=== PATIENT | female | born 1985 | race Caucasian/White ===

== ENCOUNTER 2021-07-03 07:29 | Outpatient (CLI) | payer OTHER, SELFPAY ==
--- NOTE | 2021-07-10 13:17 | WPDHOMESLEEP ---
Sleep Study - Home Unattended Date of Study: 07/03/21 <Gerda Valentino, DO - Last Filed: 07/10/21 13:39> Ordering Provider: UNKNOWN,DOCTOR <Gerda Valentino, DO - Last Filed: 07/10/21 13:39> Interpreting Provider: Gerda Valentino DO <Gerda Valentino, DO - Last Filed: 07/10/21 13:39> Home Sleep Study Type: Watch PAT <Gerda Valentino, DO - Last Filed: 07/10/21 13:39> Height: 1.75 m <Gerda Valentino DO - Last Filed: 07/10/21 13:39> Weight: 111.13 kg <Gerda Valentino DO - Last Filed: 07/10/21 13:39> Body Mass Index: 36.1 <Gerda Valentino DO - Last Filed: 07/10/21 13:39> Neck Circumference (inches): 15 <Gerda Valentino DO - Last Filed: 07/10/21 13:39> [place]: 12 <Gerda Valentino DO - Last Filed: 07/10/21 13:39> Reason for Sleep Study Witnessed apneas while sleeping <Gerda Valentino DO - Last Filed: 07/10/21 13:39> Sleep History The patient is a 36-year-old female with history of kidney stone that had a home sleep test ordered by her primary care due to witnessed apneas. The patient states that she has had sleeping problems since 3rd grade. She states that she has to take a 2 hour nap daily. The patient occasionally awakens from sleep short of breath. She rarely awakens at night with heartburn, belching or cough. She frequently snores loud enough that others complain. She frequently has trouble sleeping when she has a cold. She rarely wakes up gasping for air throughout the night. She occasionally has breathing problems at night observed by others. She occasionally sweats excessively at night. She occasionally has heart palpitations or irregular heartbeats during the night. She frequently falls asleep during the day and occasionally while driving. She rarely experiences loss of muscle tone when emotional. She constantly has trouble at work due to sleepiness. She frequently feels unable to move when waking up her falling asleep. She constantly has vivid dreamlike scenes upon awakening or falling asleep. She rarely feels afraid to go to sleep. She constantly has nightmares. She occasionally has thoughts racing through her mind. She rarely feels sad or depressed. She occasionally feels anxious. She frequently notices parts of her body jerk. She rarely kicks during the night. He rarely experiences crawling and aching feelings in her legs as well as leg pain during the night. She rarely groins her teeth during sleep but frequently awakens with a morning jaw pain. She is constantly bothered by pain during the day and occasionally awakened by pain during the night. She constantly wakes up feeling stiff in the morning with sore and achy muscles. She constantly wakes up with pain in the neck, spine and joints. The patient goes to bed between 10 and 11:00 p.m. on weekdays and between midnight and 1:00 a.m. on the weekends. It takes her between 1 in 2 hours to fall asleep. She wakes up 2-3 times per night. When she awakens, she will use the restroom, check the time and try to go back to sleep. She will end up being awake anywhere from 15 minutes to 60 minutes. She awakens at 6:10 a.m. on weekdays and between 830 and 10:30 a.m. on the weekends. She typically gets between 4 and 6 hours of sleep per night. She will stay in bed for 5 minutes on the weekdays and up to 2 hours on the weekend after awakening in the morning. She currently lives with her spouse and 15-year-old son. She denies consuming any caffeinated beverages within 2 hours of bedtime. She does not engage in physical exercise before bedtime. She does not read or watch television before falling asleep. She does take naps in the afternoon or the evening but they are not refreshing. She has 1 green tea per day. She denies tobacco, alcohol recreational drug use. <Gerda Valentino, DO - Last Filed: 07/10/21 13:39> Sleep Procedure The sleep study was com
[2021-07-10 13:20] VITALS: BMI 36.1
== END 2021-07-06 09:11 | disposition home or self-care (01) ==
LOC: ANHCSM 07:30
PROVIDERS: PCP Family Medicine
DX: G47.30 Sleep apnea, unspecified (principal)
CPT/HCPCS: 95800

== ENCOUNTER 2021-11-17 20:00 | Outpatient (CLI) | payer OTHER, SELFPAY ==
--- NOTE | 2021-11-28 16:15 | WPDSLEEPSTUD ---
Sleep Study Date of Study: 11/17/21 Ordering Provider: Erlinda Feldman, DEMARCO Interpreting Physician: Farzaneh Yañez MD Sleep Study Type: Polysomnogram Height: 1.75 m Weight: 108.862 kg Body Mass Index: 35.4 Neck Circumference (inches): 14 [place]: 6 Reason for Sleep Study * 07/03/2021 Home Sleep Apnea Test using WatchPat; AHI of 0.6 which is not consistent with sleep-disordered breathing and an RDI of 5.5 which is abnormal (>5). Due to the discrepancy between the AHI and the RDI, the patient presents for an in-lab study. Sleep History Adela Kumar is a 36-year-old female who had a home sleep test due to witnessed apneas. The patient states that she has had sleeping problems since 3rd grade. She states that she has to take a 2 hour nap daily. The patient occasionally awakens from sleep short of breath. She rarely awakens at night with heartburn, belching or cough. She frequently snores loud enough that others complain. She frequently has trouble sleeping when she has a cold. She rarely wakes up gasping for air throughout the night. She occasionally has breathing problems at night observed by others. She occasionally sweats excessively at night. She occasionally has heart palpitations or irregular heartbeats during the night. She frequently falls asleep during the day and occasionally while driving. She rarely experiences loss of muscle tone when emotional. She constantly has trouble at work due to sleepiness. She frequently feels unable to move when waking up her falling asleep. She constantly has vivid dreamlike scenes upon awakening or falling asleep. She rarely feels afraid to go to sleep. She constantly has nightmares. She occasionally has thoughts racing through her mind. She rarely feels sad or depressed. She occasionally feels anxious. She frequently notices parts of her body jerk. She rarely kicks during the night. He rarely experiences crawling and aching feelings in her legs as well as leg pain during the night. She rarely groins her teeth during sleep but frequently awakens with a morning jaw pain. She is constantly bothered by pain during the day and occasionally awakened by pain during the night. She constantly wakes up feeling stiff in the morning with sore and achy muscles. She constantly wakes up with pain in the neck, spine and joints. Normal bedtime is between 10 and 11:00 p.m. on weekdays and between midnight and 1:00 a.m. on the weekends. It takes her between 1 and 2 hours to fall asleep. She wakes up 2-3 times per night. When she awakens, she uses the bathroom, checks the time and tries to go back to sleep. She is able to return to sleep within 15 minutes to 60 minutes. She awakens at 6:10 a.m. on weekdays and between 8:30 a.m. and 10:30 a.m. on the weekends. She typically gets between 4 and 6 hours of sleep per night. She will stay in bed for 5 minutes on the weekdays and up to 2 hours on the weekend after awakening in the morning. She does take naps in the afternoon or the evening but they are not refreshing. Habits: No tobacco. Caffeine: 1 green tea per day. No alcohol or recreational drug use. [facility] Past Medical History Medical History (Updated 11/28/21 @ 16:40 by Farzaneh Yañez MD) Female hirsutism Impaired glucose tolerance Social History Social History (Updated 11/28/21 @ 16:41 by Farzaneh Yañez MD) Smoking status: Never smoker Alcohol intake: never Substance use: never Medications Home Medications Medication Instructions Recorded Confirmed Type norgestimate 0.25 mg-ethinyl 1 tablet PO DAILY #84 tablet 08/08/21 Rx estradiol 35 mcg tablet Sleep Procedure This test was performed using the [facility] multiple channel system including EOG, EEG, submental EMG, EKG, nasal and oral airflow using thermistors and nasal pressure sensors, chest and abdominal belts for body position data, and pulse oximetry. Video monitoring was also performed. The study was s
[2021-11-28 16:42] VITALS: BMI 35.4
== END 2021-11-18 07:00 | disposition home or self-care (01) ==
LOC: ANHCSM 11-20 11:00
PROVIDERS: PCP Physician Assistant; Visit Provider Physician Assistant
DX: G47.30 Sleep apnea, unspecified (principal); R06.83 Snoring
CPT/HCPCS: 95810

== ENCOUNTER 2024-03-27 17:16 | Emergency (ER) | payer OTHER, SELFPAY ==
[2024-03-27 17:40] VITALS: BP 131/78; PULSE 82; RESP 15; TEMP 36.6; O2SAT 98
--- NOTE | 2024-03-27 17:49 | ED.URI ---
HPI - URI/Sore Throat General Chief Complaint: Upper Respiratory Infection Stated Complaint: Flu Like symthoms / head ache Time Seen by Provider: 03/27/24 17:49 Source: patient Mode of arrival: ambulatory Limitations: no limitations History of Present Illness HPI Narrative: 38-year-old female presents with complaint of nasal congestion, postnasal drainage, sinus pressure for 9 days. Taking [id number] Tylenol cold and flu to treat symptoms. Has felt feverish but no fever. Denies cough. Complaint of fatigue. All systems reviewed and negative except as noted above. Related Data Home Medications Medication Instructions Recorded Confirmed phentermine 37.5 mg tablet 37.5 mg PO DAILY 03/27/24 03/27/24 trazodone 50 mg tablet 50 mg PO HS 03/27/24 03/27/24 Allergies Allergy/AdvReac Type Severity Reaction Status Date / Time No Known Allergies Allergy Verified 03/27/24 17:34 Review of Systems Review of Systems: CONSTITUTIONAL: Denies fever, chills, or sweats. reports fatigue. EYES: Denies visual changes, redness, or discharge. ENT: Reports rhinorrhea, congestion sinus pressure. Denies sore throat, or otalgia. CARDIOVASCULAR: Denies chest pain, palpitations, or edema. RESPIRATORY: Denies cough or dyspnea. GASTROINTESTINAL: Denies abdominal pain, nausea, vomiting, or diarrhea. GENITOURINARY: Denies dysuria or hematuria. SKIN: Denies rash or itching. MUSCULOSKELETAL: Denies back pain, joint pain, or myalgia. NEUROLOGIC: Denies headache, numbness, or weakness. PSYCHIATRIC: Denies anxiety or depression. All other systems reviewed are negative, except as documented in HPI. [facility] Past Medical History Medical History Acne Anxiety Depression Female hirsutism Impaired glucose tolerance Insomnia Kidney stones Migraines Obesity Family History Family History Mother Diabetes mellitus Cerebrovascular accident Hypertension Heart disease Cirrhosis of liver Grandparent Breast cancer maternal grandmother Other Carcinoma of colon Social History Social History (Updated 02/25/24 @ 15:38 by Lupe Garces CMA) Smoking status: Never smoker Alcohol intake: never Substance use: never Do You Feel Safe in your Home?: Yes Lack of Transportation: No Lack of Food: Never True Current Housing: I Have Housing Concerned About Future Housing: No Difficulty Paying Gas/Electric Bills: Decline to Answer Difficulty Paying for Meds: No Education: Associate Degree Difficulty w/ Childcare or Family Care: No Living arrangements: with family Occupation/Education: occupation Gender identity (if verbalized by the patient): Female Comments At time of signature, agree with nursing past medical, surgical, social and family history. There is no relevant family history pertinent to the presenting complaint. Exam Narrative: GENERAL: This is a well-nourished, well-developed patient, in no apparent distress. HEAD: normocephalic, atraumatic. EYES: PERRL. Sclera clear/white. Vision is grossly intact. EARS: External ears normal, auditory canals clear and without drainage, Fluid bilateral TMs without erythema or perforation. Hearing grossly intact. NOSE: External nose normal with Congested, purulent nasal drainage, erythema and swelling to bilateral nares. Frontal and maxillary sinus tenderness on palpation bilaterally. THROAT: Mucous membranes moist, Erythema postnasal drainage NECK: Neck supple, non-tender without lymphadenopathy, masses or thyromegaly. CARDIOVASCULAR: Regular rate and rhythm without murmurs, gallops, or rubs. RESPIRATORY: Clear to auscultation. Breath sounds equal bilaterally. No wheezes, rales, or rhonchi. SKIN: warm, Dry, intact with no suspicious lesions or rash, good texture and turgor. NEURO: awake, alert, and oriented to person, place and time. There we
== END 2024-03-27 18:06 | disposition home or self-care (01) ==
PROVIDERS: Emergency Provider Nurse Practitioner Family; PCP Physician Assistant
DX: J01.90 Acute sinusitis, unspecified (principal); F32.A Depression, unspecified; E66.9 Obesity, unspecified; Z68.34 Body mass index [BMI] 34.0-34.9, adult
CPT/HCPCS: 99213; G0463

== ENCOUNTER 2024-04-30 00:41 | Day surgery (SDC) | payer OTHER, SELFPAY ==
--- NOTE | 2024-04-21 17:06 | SUR.PREOP ---
Report to the Outpatient Waiting Room, entrance under the green pavilion located off [facility], at time _0600_ on date _04/30/2024_. Planned Procedure Time: _0730_.? Time changes happen often and if your time is changed the preop area will call you the afternoon before. - You and your visitor will be asked to self-screen and do not enter if you have any COVID symptoms. Please call surgeon if you need to reschedule. - A mask is optional within the hospital at this time. Patients may have clear liquids (water, carbonated beverages, clear teas, apple juice) until 3 hours prior to surgery with a maximum of 20 ounces. - No food from midnight until time of surgery and no smoking - Infants may have breast milk until 4 hours before surgery, formula 6 hours prior to surgery. - Children will be allowed to drink immediately following surgery.? If applicable, please bring a bottle or sippy cup to assist with drinking. Juice, water, soda, and popsicles are readily available.? For infants on formula, please bring formula the day of surgery.? Pacifiers are allowed. Take only the following medications with a SIP of water on the morning of surgery: __NA__ DO NOT STOP ANY OF YOUR OTHER PRESCRIPTION MEDICATIONS PRIOR TO SURGERY EXCEPT THE FOLLOWING Medications to discontinue per physician __NA___ Date to take last dose__NA__ Please no make-up, nail andorran, hairspray, perfume, deodorant, or body powder the day of surgery.? No jewelry (including any body piercings) or valuables the day of surgery, leave them at home.? Please take a shower or bath the night before, or the morning of, surgery with an antibacterial soap.? Wear comfortable, loose fitting clothing.? Children are encouraged to wear pajamas. - Jewelry must be removed prior to entering the operating room.? Rings and piercings that are not removed may be cut off. - The hospital will not accept responsibility for valuables.? - Please leave all valuables, including medications, at home the day of surgery. If you are going home after surgery, a licensed uke driver must drive you home.? - NO public transportation without another adult if you receive anesthesia. - We recommend that an adult stay with you for 24 hours following discharge. - We also recommend that you do not drive, make important decision, drink alcoholic beverages, or take any drugs that were not prescribed by your health care provider for at least 24 hours after your discharge time. For Pediatric surgeries, we recommend two adults accompany the child home. Follow any additional instructions given to you from your surgeon. Telephone instructions given to __Staci__and asked if any additional questions and then verbalized understanding. Patient advised to call surgeon office or pre surgery nurse liaison [phone] if any additional questions.
[2024-04-21 17:16] VITALS: BMI 33.8
--- NOTE | 2024-04-28 17:37 | PM.IMHP ---
H&P: HPI History of Present Illness Date/Time: 04/28/24 17:37 39-year-old 1 para 1001 female presents for evaluation and treatment of heavy irregular vaginal bleeding. States her cycles are now 5-7 days 3-4 days heavy with clotting and cramping, ultrasound shows enlarged uterus with multiple fibroids approximately 2-3 cm or smaller. Denies any significant symptoms or pain between her cycles but the cycles themselves are again very heavy with a lot of discomfort. Not currently using anything for contraception and does not desire any hormonal contraception. Also have discussed permanent contraception in the form of tubal removal which she strongly desires. We have discussed the permanence failure rate and increased of ectopic and regret and patient strongly desires. Chief Complaint: Menometrorrhagia Review of Systems Review of Systems: All systems reviewed & are unremarkable except as noted in HPI and below PMFSH Past Medical History Medical History Acne Anxiety Depression Female hirsutism Impaired glucose tolerance Insomnia Kidney stones Migraines Obesity Family History Family History Mother Diabetes mellitus Cerebrovascular accident Hypertension Heart disease Cirrhosis of liver Grandparent Breast cancer maternal grandmother Other Carcinoma of colon Social History Social History Smoking status: Never smoker Second hand tobacco smoke exposure: No Alcohol intake: never Substance use: never Substance use type: does not use Do You Feel Safe in your Home?: Yes Lack of Transportation: No Lack of Food: Never True Current Housing: I Have Housing Concerned About Future Housing: No Difficulty Paying Gas/Electric Bills: Decline to Answer Difficulty Paying for Meds: No Education: Associate Degree Difficulty w/ Childcare or Family Care: No Living arrangements: with family Additional living arrangements comments: with son and S/O Occupation/Education: occupation Gender identity (if verbalized by the patient): Female Spiritual care concerns: No Meds Home Medications and Allergies Home Medications Medication Instructions Recorded Confirmed Type phentermine 37.5 mg tablet 37.5 mg PO DAILY 04/21/24 04/21/24 History trazodone 50 mg tablet 50 mg PO DAILY 04/21/24 04/21/24 History Allergies Allergy/AdvReac Type Severity Reaction Status Date / Time No Known Allergies Allergy Verified 04/21/24 17:25 Exam Resp: Effort & Inspection: normal respiratory effort Auscultation: clear to auscultation bilaterally Cardio: Rate: regular rate Rhythm: regular rhythm GI: Inspection: normal to inspection Auscultation: normal bowel sounds : External Female Exam: normal external appearance Speculum Exam - Vagina: normal appearance of the vagina Speculum Exam - Cervix: normal appearance of the cervix Bimanual exam- vagina & uterus: enlarged ( 10-12 week size) Bimanual Exam- Adnexa, other: normal adnexae Assessment and Plan Assessment and plan (1) Menometrorrhagia: Code(s): N92.1 - Excessive and frequent menstruation with irregular cycle Status: Acute (2) Encounter for female sterilization procedure: Code(s): Z30.2 - Encounter for sterilization Status: Acute Plan 1. Hysteroscopy with uterine curettings 2. Endometrial ablation 3. Laparoscopic bilateral salpingectomy
[2024-04-30] VITALS (8 sets, daily range): BP systolic 106–126; BP diastolic 60–71; PULSE 75–85; RESP 16–25; TEMP 36.3–36.4; O2SAT 95–100; BMI 34.7
--- NOTE | 2024-04-30 06:42 | WPDANESEPPF ---
Anes - Initial Pre Proc Eval Procedure: Operation Date: 04/30/24 07:30 Proposed Procedures p Laparoscopic Bilateral Salpingectomy, Hysteroscopy Dilatation and Curettage, Melani Endometrial Ablation - Wally Downs MD Date/Time: 04/30/24 06:42 Surgeon: Wally Downs MD Pre Op Diagnosis: menometrorrhagia, desires sterilization Patient Data Age: 39 Gender: F Height: 1.75 m Weight: 104 kg Allergies Allergy/AdvReac Type Severity Reaction Status Date / Time No Known Allergies Allergy Verified 04/21/24 17:25 Home Medications Medication Instructions Recorded Confirmed Type phentermine 37.5 mg tablet 37.5 mg PO DAILY 04/21/24 04/21/24 History trazodone 50 mg tablet 50 mg PO DAILY 04/21/24 04/21/24 History Patient hx anesthesia problems: none Family hx anesthesia problems: none Results Review: All pre-operative results and documents have been reviewed as part of the pre-operative evaluation. [facility] Past Medical History Medical History Acne Anxiety Depression Female hirsutism Impaired glucose tolerance Insomnia Kidney stones Migraines Obesity Family History Family History Mother Diabetes mellitus Cerebrovascular accident Hypertension Heart disease Cirrhosis of liver Grandparent Breast cancer maternal grandmother Other Carcinoma of colon Social History Social History Smoking status: Never smoker Second hand tobacco smoke exposure: No Alcohol intake: never Substance use: never Substance use type: does not use Do You Feel Safe in your Home?: Yes Lack of Transportation: No Lack of Food: Never True Current Housing: I Have Housing Concerned About Future Housing: No Difficulty Paying Gas/Electric Bills: Decline to Answer Difficulty Paying for Meds: No Education: Associate Degree Difficulty w/ Childcare or Family Care: No Living arrangements: with family Additional living arrangements comments: with son and S/O Occupation/Education: occupation Gender identity (if verbalized by the patient): Female Spiritual care concerns: No Anes - Eval Final PreProcedure Day of Procedure 04/30/24 06:42 Patient weight: obese Heart: regular rate and rhythm Lungs: clear to auscultation Airway: Mallampati scale class II Neurological: alert and oriented Last oral intake: >/= 8 hours ASA classification: II Emergent: no Anesthetic plan: proceed Anesthesia type and monitoring: general ETT and standard monitoring Results Review: All pre-operative results and documents have been reviewed as part of the pre-operative evaluation. Informed Consent: The patient's anesthetic plan and its attendant risks and benefits were discussed with the patient/family/POA. Questions were solicited and answers provided to the satisfaction of the patient/family/POA.
[2024-04-30 06:50] LABS: BEDSIDEPREGUCG Negative (Negative)
[2024-04-30] MEDS: SCOPOLAMINE 1 MG PATCH 1 PATCH TRANSDERM (06:50)
[2024-04-30] MEDS: ACETAMINOPHEN 500 MG TABLET 1000 MG PO (06:50)
[2024-04-30] MEDS: KETOROLAC 15 MG/ML VIAL (*BKC) IV PUSH (06:50)
[2024-04-30] MEDS: LACTATED RINGERS 1,000 ML 30 ML IV CONT ×2 (06:50→09:38)
--- NOTE | 2024-04-30 07:06 | WPDHPUPDATE1 ---
History and Physical Update Update Date/Time: 04/30/24 07:06 History and Physical has been reviewed, including an updated exam of the patient. There are NO changes in the patient's condition. Risks, benefits, and alternatives have been discussed and questions answered. Patient agrees to proceed with procedure.
[2024-04-30] MEDS: ceFAZolin 2 GM/D5W 50 ML 2 GM/50 ML BAG IVPB (07:26)
[2024-04-30] MEDS: fentaNYL CITRATE INJ (*CRX) 100 MCG/2 ML VIAL 25 MCG IV PUSH ×5 (08:33→10:04)
--- NOTE | 2024-04-30 08:34 | P.OP_ITS ---
Procedure Note - Detailed Date of Procedure 04/30/24 Pre-op Diagnosis menometrorrhagia, desires sterilization Post-op Diagnosis Same Procedure Performed 1. Hysteroscopy with uterine curettings 2. Endometrial ablation 3. Bilateral salpingectomy laparoscopic Surgeon Wally Downs MD Anesthesia General Description of Procedure Patient prepped and draped in usual manner for this procedure. Cervical instruments were placed for uterine mobility throughout the case. Surgeon moved to the abdomen and abdominal trocar sites were marked and placed under direct visualization. Trendelenburg position was obtained and uterus in 2 zones without abnormality. Using the Harmonic scalpel the mesial salpinx cauterized and cut without difficulty and the tubes removed bilaterally. Gas was allowed to escape and incisions were approximated using 4-0 Monocryl after the trocars were removed. Cervix was dilated to allow the hysteroscope to be placed, once placed evaluation revealed no abnormalities. Curettings were obtained. Melani instrument was placed, cavity assessment was performed, instrument was activa [id number]. At the end of the cycle good destruction was noted throughout and the procedure was considered terminated. Patient was sent to recovery room in stable condition. Estimated Blood Loss 10 Drains No Packing No Pathology Yes Complications No immediate complications Condition Stable Disposition PACU [facility] Billing Surgery - Charge Forward: Surgery Billing
[2024-04-30] MEDS: oxyCODONE HCL (*CRX) 5 MG TAB IR PO (09:46)
== END 2024-04-30 10:37 | disposition home or self-care (01) ==
PROVIDERS: PCP Physician Assistant; Visit Provider Obstetrics & Gynecology
PROC: 0UDB8ZZ Extraction of Endometrium, Via Natural or Artificial Opening Endoscopic (ICD-10-PCS; CPT 58558; principal; 2024-04-30 07:30)
DX: Z30.2 Encounter for sterilization (principal); N85.8 Other specified noninflammatory disorders of uterus; G89.18 Other acute postprocedural pain; F41.9 Anxiety disorder, unspecified; F32.A Depression, unspecified; G47.00 Insomnia, unspecified; E66.9 Obesity, unspecified; Z68.34 Body mass index [BMI] 34.0-34.9, adult; Z87.442 Personal history of urinary calculi; Z80.0 Family history of malignant neoplasm of digestive organs; Z80.3 Family history of malignant neoplasm of breast; Z82.49 Family history of ischemic heart disease and other diseases of the circulatory system
CPT/HCPCS: 58563; 58661; 88302; 88305; A9270; J0690; J1100; J1885; J2250; J2405; J2704; J3010; J7030; J7120

== ENCOUNTER 2024-08-26 12:03 | Emergency (ER) | payer OTHER, SELFPAY ==
--- NOTE | 2024-08-26 12:10 | ED_ITS ---
HPI - URI/Sore Throat General Chief Complaint: Upper Respiratory Infection Stated Complaint: sore throat Time Seen by Provider: 08/26/24 12:13 History of Present Illness HPI Narrative: 39 Year old female presented for complaint of sore throat, fever, cough and malaise. Onset 4 days. Taking Mucinex and Tylenol Severe. Denies sob, wheezing, nausea, vomiting, diarrhea or lethargy. She works in Education. Related Data Home Medications ?Medication ?Instructions ?Recorded ?Confirmed ?Last Taken ?Type ergocalciferol (vitamin D2) 1,250 08/26/24 Unknown History mcg (50,000 unit) capsule Allergies Allergy/AdvReac Type Severity Reaction Status Date / Time No Known Allergies Allergy Verified 08/26/24 12:16 Review of Systems Review of Systems: CONSTITUTIONAL: Denies body aches, reports fever, chills, or sweats. EYES: Denies visual changes, redness, or discharge. ENT: Reports rhinorrhea, congestion, sore throat or otalgia. CARDIOVASCULAR: Denies chest pain, palpitations, or edema. RESPIRATORY: Denies dyspnea. GASTROINTESTINAL: Denies abdominal pain, nausea, vomiting, or diarrhea. SKIN: Denies rash MUSCULOSKELETAL: Denies back pain, joint pain NEUROLOGIC: Denies headache PMFSH Past Medical History Medical History Insomnia Acne Obesity Kidney stones Migraines Depression Anxiety Female hirsutism Impaired glucose tolerance Surgical History Surgical History H/O bilateral salpingectomy (04/30/24) pathology benign Family History Family History Mother Diabetes mellitus Cerebrovascular accident Hypertension Heart disease Cirrhosis of liver Grandparent Breast cancer maternal grandmother Other Carcinoma of colon Social History Social History Smoking status: Never smoker Second hand tobacco smoke exposure: No Alcohol intake: never Substance use: never Substance use type: does not use Do You Feel Safe in your Home?: Yes Lack of Transportation: No Lack of Food: Never True Current Housing: I Have Housing Concerned About Future Housing: No Difficulty Paying Gas/Electric Bills: Decline to Answer Difficulty Paying for Meds: No Education: Associate Degree Difficulty w/ Childcare or Family Care: No Living arrangements: with family Additional living arrangements comments: with son and S/O Occupation/Education: occupation Gender identity (if verbalized by the patient): Female Spiritual care concerns: No Exam Narrative: GENERAL: well-appearing EYES: conjunctivae clear ENT: Mucous membranes moist. TM pearly fink with normal light reflex bilaterally; no tragal tenderness. Oropharynx erythematous without lesions. Tons ils enlarged 1+ and without exudate. No drooling, no hoarseness, no trismus, uvula midline. No tripod positioning, hot potato voice, or soft palate swelling. NECK: Supple. No lymphadenopathy CHEST: Clear to auscultation, breath sounds equal. No respiratory distress, speaks in full sentences. HEART: Regular rate and rhythm. No murmur heard. SKIN: Warm, dry NEURO: Alert and oriented x3. Course Course Emergency Course: Patient is aware of diagnosis, understands and agrees to treatment plan. Anticipatory guidance given. Patient agrees to follow-up as directed and is aware of reasons to seek care at the emergency department. Portions of this record may have been created with voice recognition software Level of Care: Express Care Visit Vital Signs Vital signs: Vital Signs Temperature 98.5 F 08/26/24 12:16 Pulse Rate 96 08/26/24 12:16 Respiratory Rate 18 08/26/24 12:16 Blood Pressure 121/63 08/26/24 12:16 Pulse Oximetry 99 08/26/24 12:16 Oxygen Delivery Room Air 08/26/24 12:16 Temperature 98.5 F 08/26/24 12:16 Pulse Rate 96 08/26/24 12:16 Respiratory Rate 18 08/26/24 12:16 Blood Pressure 121/63 08/26/24 12:16 Pulse Oximetry 99 08/26/24 12:16 Oxygen Delivery Room Air 08/26/24 12:16 MDM - URI/Sore Throat MDM Narrative Medical decision making narrative: Flu, COVID, strep result reviewed with pt. Advise supportive treatments. Patient is appropriate for outpatient treatment and follow-up. Differential Diagnosis Differential diagnosis: Likely upper respiratory infection, viral infection and pharyngitis Lab Data Labs: Lab Results 08/26/24 08/26/24 Range/Units 12:36 12:37 POC Influenza A Ag Negative (Negative) POC Influenza B Ag Negative (Negative) POC SARS CoV-2 Ag Negative (Negative) POC Grp A Strep Screen Negative (Negative) Discharge Plan Discharge Clinical Impression: Upper respiratory infection Patient Disposition: Home, Self-Care Condition: Stable Instructions: Upper Respiratory Infection (ED) Additional Instructions: Flu and COVID negative. Rapid strep swab was negative today You will be notified in a few days if the culture comes back positive for strep, and appropriate antibiotics will be called in at that time. if symptoms are due to a viral illness, it is not treated with antibiotics. Viral symptoms can be present for up to 10-14 days. Recommendations Flonase spray and Zyrtec for sinus congestion Cough syrup may cause drowsiness; avoid driving or take it at night time. Tylenol every 8 hours as needed for pain/fever Soft foods, cool liquids, warm tea. Gargle with warm saltwater twice a day. Chloraseptic spray and throat lozenges. Rest and stay hydrated. --Follow up with your PCP --Go to the ER immediately if you cannot swallow your saliva, trouble breathing/wheezing, throat swelling, pain is persistent and severe Patient Language: [place] Prescriptions: No Action ergocalciferol (vitamin D2) 1,250 mcg (50,000 unit) capsule Follow-up/Referrals: Gaston,DEMARCO Coffey [Primary Care Provider] - Stand Alone Forms: Work/School Release IP
[2024-08-26 12:16] VITALS: BP 121/63; PULSE 96; RESP 18; TEMP 36.9; O2SAT 99
[2024-08-26 12:38] LABS: EDCOVIDSCREEN Negative (Negative); EDSTREPNEGPOS1 Negative (Negative)
[2024-08-26 12:39] LABS: EDINFLUASCREEN Negative (Negative); EDINFLUBSCREEN Negative (Negative)
--- OUTSIDE RECORDS SUMMARY | 2024-08-26 13:17 | XMS_ITS | Referral Summary ---
Author Organization [facility] Address [address] [place] [id number] Care Team Providers Care Entry Level Management Name Role Phone Vasquez Fedlmanmarvin RUDD Primary Care Pr ovider Eduardo Martin MD Unavailable [phone] Allergies No known active allergies Medications metFORMIN (FORTAMET) 500 mg 24 hr tablet take 1 Tablet by oral route every day with the evening meal 90 3 09/07/2014 Active albuterol HFA (PROVENTIL HFA,VENTOLIN HFA,PROAIR HFA) 90 mcg/actuation inhaler Inhale 2 puffs 08/14/2021 Active Sprintec, 28, 0.25-35 mg-mcg per tablet 09/06/2021 Active cyanocobalamin (Vitamin B-12) 1,000 mcg/mL injection Inject 1 mL under the skin every 30 (thirty) days Active Active Problems Problem Noted Date Diagnosed Date Facial rash 09/11/2021 Overview (09/22/2021): Labs (09/11/21): Cmp/cbc wnl, ESR 11, CRP 11.2, UA trace proteinuria, 3+ blood, neg chromatin AVISE (09/11/21): YAMILEX 1:320 homogenous, neg anti-histone and carP, elevated C3 Assessment & Plan (10/02/2021 1:21 PM CDT): Serologies reveal a +YAMILEX 1:320 homogenous pattern but is otherwise unremarkable for any other autoantibodies. Anti-histone and chromatin ab are negative as well. UA showed 3+ blood however due to menstruation at time of specimen collection per patient report. Continues to have facial rash exacerbated by alcohol intake, fatigue, flu-like feeling , and AM stiffness lasting 20 minutes. Was recently on steroids per pcp for chest wheezing without any improvement of her symptoms further suggesting it is not due to an inflammatory etiology. Overall, serologies are unremarkable and a +YAMILEX is non-specific for a connective tissue disease. Positive YAMILEX is a normal variant that can be seen in females of child-bearing age. There is no clinical or serological evidence at this time to suggest a rheumatological etiology. Would recommend further evaluation by dermatology. Follow up as needed. Seen with Dr. Martin. 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 No obvious synovitis or tenderness noted on peripheral exam today. Photos on patient's phone are suspicious for a malar rash however only lasts maximum 24 hours and her other symptoms are nonspecific for a CTD. Symptoms and exam are not overly suspicious for a rheumatological disease. Will order appropriate serologies to further evaluate. Should our work up be unremarkable for a CTD, could consider further evaluation by dermatology next. Follow up in 2 weeks. Sooner if needed. Seen with Dr. Martin. Adiposity 09/07/2014 Overview (10/25/2016): Obesity Social History Tobacco Use Types Packs/Day Years Used Date Smoking Tobacco: Never Alcohol Use Standard Drinks/Week Comments Yes 0 (1 standard drink = 0.6 oz pur e alcohol) Comments Unknown Sex and Gender Information Value Date Recorded Sex Assigned at Not on file Legal Sex Female 5:01 PM LETTUCE TRIMMER Gender Identity Not on file Sexual Orientation Not on file Last Filed Vital Signs Vital Sign Reading Time Taken Comments Blood Pressure 130/84 09/11/2021 2:15 PM LETTUCE TRIMMER Pulse 67 09/11/2021 2:15 PM LETTUCE TRIMMER Temperature 36.8 ??C (98.2 ??F) 10/02/2021 1:03 PM CD T Respiratory Rate - - Oxygen Saturation 98% 09/11/2021 2:15 PM LETTUCE TRIMMER Inhaled Oxygen Concentration - - Weight 112.1 kg (247 lb 3.2 oz) 10/02/2021 1:03 PM CDT Height 170.2 cm (5' 7 ) 10/23/2016 1:26 PM CDT Body Mass Index 38.72 10/23/2016 1:26 PM CDT Plan of Treatment Not on file Insurance [employer] Care Teams Entry Level Management Relationship Specialty Start Date End Date Erlinda Feldman PA PCP - General 10/19/16 Eduardo Martin MD [address] [place] [address] Consulting Physician Rheumatology 08/01/21
--- OUTSIDE RECORDS SUMMARY | 2024-08-26 13:17 | XMS_ITS | Data Portability ---
Author Organization [facility]ENTERMargoEglin Afb H Address [address] [place] [address] Care Team Providers Care Campaign Worker Name Role Phone ERLINDA VALENZUELA Primary Care Provider Unavailab le Assessment No assessment recorded. Plan of Treatment Reminders Order Date Submit Date Provider Last Modified By Organization Details Last Modified Time Details Appointments None recorded. Lab YAMILEX (antinucle ar antibodies ) screen, serum 2023 024 [email or web address] [facility], [address], [place], [address], 4 09:46:04 lipid panel, serum 2023 024 tcarterma [facility], [address], [place], [address], 4 10:43:33 vitamin B12 + folate, serum or blood 2023 024 tcarterma [facility], [address], [place], [address], 4 10:44:45 vitamin D, 25-hydroxy , total, serum 2023 024 tcarterma [facility], [address], [place], [address], 4 10:44:36 CMP, serum or plasma 2023 024 tcarterma [facility], [address], [place], [address], 4 10:44:27 CBC w/ auto diff [facility]23 [facility], [address], [place], [address], 4 10:44:11 iron + total iron-crys ng capacity (TIBC), serum [facility]23 [facility], [address], [place], [address], 4 10:43:59 ferritin, serum or plasma 2023 [facility], [address], [place], [address], 4 10:43:49 TSH + free T4, serum [facility]23 [facility], [address], [address], [place], [address], 4 10:43:41 rf (rheumatoi d factor) + anti-ccp abs, serum 2023 [facility], [address], [place], [address], 4 10:45:15 erythrocyt e sedimentat ion rate by westergren method [facility]23 [facility] [address], [address], [place], [address], 4 10:45:03 C reactive protein, QN, serum or plasma [facility]23 [facility], [address], [address], [place], [address], 4 10:44:54 HbA1c (hemoglobi n A1c), blood 2023 024 [facility], [address], [place], [address], 4 10:43:24 insulin, serum 2023 024 [facility], [address]22 [address], [address], [place], [address], 4 10:43:16 YAMILEX (antinucle ar antibodies ) screen, serum 2023 024 [facility], [address], [address], [place], [address], 5 09:08:47 lipid panel, serum 2023 024 [facility], 2022 [address], [address], [place], [address], 5 09:08:49 vitamin B12 + folate, serum or blood 2023 024 [facility], 2022 [address], [address], [place], [address], 5 09:08:53 vitamin D, 25-hydroxy , total, serum 2023 024 [facility], 2022 [address], [address], [place], [address], 5 09:09:03 CMP, serum or plasma 2023 024 [facility], 2022 [address], [address], [place], [address], 5 09:08:51 CBC w/ auto diff 2023 024 [facility], 2022 [address], [address], [place], [address], 5 09:08:59 iron + total iron-crys ng capacity (TIBC), serum 2023 [facility], [address], [address], [place], [address], 5 09:08:54 ferritin, serum or plasma 2023 [facility], [address], [address], [place], [address], 5 09:08:58 TSH + free T4, serum 2023 [facility], [address], [address], [place], [address], 5 09:08:50 rf (rheumatoi d factor) + anti-ccp abs, serum 2023 [facility], [address]22 [address], [address], [place], [address], 5 09:08:46 erythrocyt e sedimentat ion rate by westergren method 2023 [facility], [address]22 [address], [address], [place], [address], 5 09:09:00 C reactive protein, QN, serum or plasma 2023 [facility], [address]22 [address], [address], [place], [address], 5 09:09:02 HbA1c (hemoglobi n A1c), blood 2023 [facility], [address]22 [address], [address], [place], [address], 5 09:08:55 insulin, serum 2023 [facility], [address], [address], [place], [address], 5 09:08:57 Referral neurologis t referral 2023 [facility], [address], [place], [address], 13:42:37 Procedures None recorded. Surgeries None recorded. Imaging MRI, brain, w/wo contrast 2023 [facility], [address], [address], [place], [address], 13:42:17 Medication Orders trazodone 50 mg tablet 2023 [facility], [address], [address], 4 15:49:24 phentermin e 37.5 mg tablet 2023 tcarterma [facility], [address], [address], 4 09:20:42 trazodone 50 mg tablet 2023 [facility], [address], [address], 4 09:40:37 Medrol (Rikki) 4 mg tablets in a dose pack 2023 [facility], [address], [address], 4 09:40:38 Patient TargetsNo targets recorded. Patient Instructions Encounter Date Encounter Id Patient Instructions Last Modified By Organization Details Last Modified Time 06/17/2024 [id number] A healthy lifestyle: care instructions [email or web address] Not available 06/17/2024 09:40:32 Reason for Referral Neurologist Referral for Par esthesia Referring Physician: Erlinda Valenzuela, Internal Medicine, Encounter Date: 11/14/2023 Results Created Date Observation Date Name Description Value Unit Range Abnormal Flag Note LastModifiedBy Organization Detail LastModifiedTime 08/07/1908/08/2024 RHEUM ATOID ARTHR ITIS PROFI LE rheumatoid factor (rf) <10.0 IU/mL <14.0 Not Available [facility]) [address] [place], [address], 08/13/2024 09:08:46 08/07/1908/08/2024 RHEUM ATOID ARTHR ITIS PROFI LE anti-ccp Ab, IgG/IgA 3 units 0-19 Negat adalid <20 Weak posit adalid 20 - 39 Moder ate posit adalid 40 - 59 Stron g posit adalid >59 Not Available [facility] ([facility]) [address] [place], [address], 08/13/2024 09:08:46 08/07/19 25 08/10/2024 ANTIN UCLEA R AB MULTI PLEX RFX 9 YAMILEX direct NEGATI VE negati ve Not Available [facility] ([facility]) [address] [place], [address], 08/13/2024 09:08:47 08/07/19 25 08/09/2024 LIPID PANEL W/ CHOL/ HDL RATIO cholesterol, total 146 mg/dL 100-19 9 Not Available [facility] ([facility]) [address] [place], [address], 08/13/2024 09:08:48 08/07/19 25 08/09/2024 LIPID PANEL W/ CHOL/ HDL RATIO triglyceride s 62 mg/dL 0-149 Not Available [facility] ([facility]) [address] [place], [address], 08/13/2024 09:08:48 08/07/19 25 08/09/2024 LIPID PANEL W/ CHOL/ HDL RATIO HDL cholesterol 38 mg/dL >39 below low normal Not Available [facility] ([facility]) [address] [place], [address], 08/13/2024 09:08:48 08/07/19 25 08/09/2024 LIPID PANEL W/ CHOL/ HDL RATIO VLDL cholesterol demarcus 13 mg/dL 5-40 Not Available [facility] ([facility]) [address] [place], [address], 08/13/2024 09:08:48 08/07/19 25 08/09/2024 LIPID PANEL W/ CHOL/ HDL RATIO LDL chol calc ([facility]) 95 mg/dL 0-99 Not Available [facility] ([facility]) [address] [place], [address], 08/13/2024 09:08:48 08/07/1908/09/2024 LIPID PANEL W/ CHOL/ HDL RATIO T. chol/HDL ratio 3.8 ratio 0.0-4. 4 T. Chol/ HDL Ratio Men Women 1/2 Avg.R isk 3.4 3.3 Avg.R isk 5.0 4.4 2X Avg.R isk 9.6 7.1 3X Avg.R isk 23.4 11.0 Not Available [facility] ([facility]) [address] [place], [address], 08/13/2024 09:08:48 08/07/1908/08/2024 TSH+F REE T4 TSH 2.620 uIU/m L 0.450- 4.500 Not Available [facility] ([facility]) [address] [place], [address], 08/13/2024 09:08:50 08/07/19 25 08/08/2024 TSH+F REE T4 T4,free(dire ct) 0.90 NG/dL 0.82-1 .77 Not Available [facility] ([facility]) [address] [facility] [place], [address], 08/13/2024 09:08:50 08/07/19 25 08/09/2024 COMP. METAB OLIC PANEL (14) glucose 86 mg/dL 70-99 Not Available [facility] ([facility]) [address] [place], [address], 08/13/2024 09:08:51 08/07/19 25 08/09/2024 COMP. METAB OLIC PANEL (14) BUN 6 mg/dL 6-20 Not Available [facility] ([facility]) [address] [facility] [place], [address], 08/13/2024 09:08:51 08/07/19 25 08/09/2024 COMP. METAB OLIC PANEL (14) creatinine 0.63 mg/dL 0.57-1 .00 Not Available [facility] ([facility]) [address] [facility] [place], [address], 08/13/2024 09:08:51 08/07/19 25 08/09/2024 COMP. METAB OLIC PANEL (14) eGFR 116 mL/mi n/1.7 3 >59 Not Available [facility] ([facility]) [address] [facility] [place], [address], 08/13/2024 09:08:51 08/07/19 25 08/09/2024 COMP. METAB OLIC PANEL (14) BUN/creatini ne ratio 10 9-23 Not Available [facility] ([facility]) [address] [facility] [place], [address], 08/13/2024 09:08:51 08/07/19 25 08/09/2024 COMP. METAB OLIC PANEL (14) sodium 143 mmol/ L 134-14 4 Not Available [facility] ([facility]) [address] [facility] [place], [address], 08/13/2024 09:08:51 08/07/19 25 08/09/2024 COMP. METAB OLIC PANEL (14) potassium 4.2 mmol/ L 3.5-5. 2 Not Available [facility] ([facility]) [address] [facility] [place], [address], 08/13/2024 09:08:51 08/07/19 25 08/09/2024 COMP. METAB OLIC PANEL (14) chloride 106 mmol/ L 96-106 Not Available [facility] ([facility]) [address] [facility], [place], [address], 08/13/2024 09:08:51 08/07/19 25 08/09/2024 COMP. METAB OLIC PANEL (14) carbon dioxide, total 24 mmol/ L 20-29 Not Available [facility] ([facility]) [address] [facility], [place], [address], 08/13/2024 09:08:51 08/07/19 25 08/09/2024 COMP. METAB OLIC PANEL (14) calcium 9.0 mg/dL 8.7-10 .2 Not Available [facility] ([facility]) [address] [place], [address], 08/13/2024 09:08:51 08/07/19 25 08/09/2024 COMP. METAB OLIC PANEL (14) protein, total 6.7 g/dL 6.0-8. 5 Not Available [facility] ([facility]) [address] [place], [address], 08/13/2024 09:08:51 08/07/19 25 08/09/2024 COMP. METAB OLIC PANEL (14) albumin 3.9 g/dL 3.9-4. 9 Not Available [facility] ([facility]) [address] [place], [address], 08/13/2024 09:08:51 08/07/19 25 08/09/2024 COMP. METAB OLIC PANEL (14) globulin, total 2.8 g/dL 1.5-4. 5 Not Available [facility] ([facility]) [address] [facility] [place], [address], 08/13/2024 09:08:51 08/07/19 25 08/09/2024 COMP. METAB OLIC PANEL (14) bilirubin, total 0.5 mg/dL 0.0-1. 2 Not Available [facility] ([facility]) [address] [facility] [place], [address], 08/13/2024 09:08:51 08/07/19 25 08/09/2024 COMP. METAB OLIC PANEL (14) alkaline phosphatase 67 IU/L 44-121 Not Available [facility] ([facility]) [address] [facility] [place], [address], 08/13/2024 09:08:51 08/07/19 25 08/09/2024 COMP. METAB OLIC PANEL (14) AST (SGOT) 18 IU/L 0-40 Not Available [facility] ([facility]) [address] [facility] [place], [address], 08/13/2024 09:08:51 08/07/19 25 08/09/2024 COMP. METAB OLIC PANEL (14) ALT (SGPT) 25 IU/L 0-32 Not Available [facility] ([facility]) [address] [facility] [place], [address], 08/13/2024 09:08:51 08/07/19 25 08/09/2024 HOMOC Y+MET HYL homocyst(E)i ne 17.6 umol/ L 0.0-14 .5 above high normal Not Available [facility] ([facility]) [address] [facility] [place], [address], 08/13/2024 09:08:52 08/07/19 25 08/13/2024 HOMOC Y+MET HYL methylmaloni c acid, serum 254 nmol/ L 0-378 Not Available [facility] ([facility]) [address] [place], [address], 08/13/2024 09:08:52 08/07/19 25 08/08/2024 VITAM IN B12+F OLATE vitamin B12 275 pg/mL 232-12 45 Not Available [facility] ([facility]) [address] [place], [address], 08/13/2024 09:08:53 08/07/19 25 08/08/2024 VITAM IN B12+F OLATE folate (folic acid), serum 4.2 NG/mL >3.0 A serum folat e dorothy ntrat ion of less than 3.1 ng/mL is consi dered to repre sent clini demarcus defic iency . Not Available [facility] ([facility]) [address] [place], [address], 08/13/2024 09:08:53 08/07/19 25 08/08/2024 IRON AND TIBC iron bind.cap.(TI BC) 270 ug/dL 250-45 0 Not Available [facility] ([facility]) [address] [place], [address], 08/13/2024 09:08:54 08/07/19 25 08/08/2024 IRON AND TIBC UIBC 168 ug/dL 131-42 5 Not Available [facility] ([facility]) [address] [place], [address], 08/13/2024 09:08:54 08/07/19 25 08/08/2024 IRON AND TIBC iron 102 ug/dL 27-159 Not Available [facility] ([facility]) [address] [place], [address], 08/13/2024 09:08:54 08/07/19 25 08/08/2024 IRON AND TIBC iron saturation 38 % 15-55 Not Available [facility] ([facility]) [address] [facility], [place], [address], 08/13/2024 09:08:54 08/07/1908/08/2024 HEMOG LOBIN A1C hemoglobin A1C 5.7 % 4.8-5. 6 above high normal Predi abete s: 5.7 - 6.4 Diabe michael: >6.4 Glyce du contr ol for adult s with diabe michael: <7.0 Not Available [facility] ([facility]) [address] [place], [address], 08/13/2024 09:08:55 08/07/19 25 08/09/2024 INSUL IN insulin 23.0 uIU/m L 2.6-24 .9 Not Available [facility] ([facility]) [address] [facility], [place], [address], 08/13/2024 09:08:56 08/07/19 25 08/08/2024 JULI TIN ferritin 52 NG/mL 15-150 Not Available [facility] ([facility]) [address] [place], [address], 08/13/2024 09:08:58 08/07/19 25 08/08/2024 CBC WITH DIFFE RENTI AL/PL ATELE T WBC 9.5 x10e3 /uL 3.4-10 .8 Not Available [facility] ([facility]) [address] [facility], [place], [address], 08/13/2024 09:08:59 08/07/19 25 08/08/2024 CBC WITH DIFFE RENTI AL/PL ATELE T RBC 4.70 x10e6 /uL 3.77-5 .28 Not Available [facility] ([facility]) [address] [place], [address], 08/13/2024 09:08:59 08/07/19 25 08/08/2024 CBC WITH DIFFE RENTI AL/PL ATELE T hemoglobin 14.1 g/dL 11.1-1 5.9 Not Available [facility] ([facility]) [address] [facility], [place], [address], 08/13/2024 09:08:59 08/07/19 25 08/08/2024 CBC WITH DIFFE RENTI AL/PL ATELE T hematocrit 43.2 % 34.0-4 6.6 Not Available [facility] ([facility]) [address] [facility], [place], [address], 08/13/2024 09:08:59 08/07/19 25 08/08/2024 CBC WITH DIFFE RENTI AL/PL ATELE T MCV 92 fL 79-97 Not Available [facility] ([facility]) [address] [facility], [place], [address], 08/13/2024 09:08:59 08/07/1908/08/2024 CBC WITH DIFFE RENTI AL/PL ATELE T MCH 30.0 pg 26.6-3 3.0 Not Available [facility] ([facility]) [address] [facility], [place], [address], 08/13/2024 09:08:59 08/07/1908/08/2024 CBC WITH DIFFE RENTI AL/PL ATELE T MCHC 32.6 g/dL 31.5-3 5.7 Not Available [facility] ([facility]) [address] [facility], [place], [address], 08/13/2024 09:08:59 08/07/19 25 08/08/2024 CBC WITH DIFFE RENTI AL/PL ATELE T RDW 12.2 % 11.7-1 5.4 Not Available [facility] ([facility]) [address] [place], [address], 08/13/2024 09:08:59 08/07/19 25 08/08/2024 CBC WITH DIFFE RENTI AL/PL ATELE T platelets 223 x10e3 /uL 150-45 0 Not Available [facility] ([facility]) [address] [facility], [place], [address], 08/13/2024 09:08:59 08/07/19 25 08/08/2024 CBC WITH DIFFE RENTI AL/PL ATELE T neutrophils 69 % notest ab. Not Available [facility] ([facility]) [address] [facility], [place], [address], 08/13/2024 09:08:59 08/07/19 25 08/08/2024 CBC WITH DIFFE RENTI AL/PL ATELE T lymphs 22 % notest ab. Not Available [facility] ([facility]) [address] [facility], [place], [address], 08/13/2024 09:08:59 08/07/19 25 08/08/2024 CBC WITH DIFFE RENTI AL/PL ATELE T monocytes 6 % notest ab. Not Available [facility] ([facility]) [address] [facility], [place], [address], 08/13/2024 09:08:59 08/07/19 25 08/08/2024 CBC WITH DIFFE RENTI AL/PL ATELE T eos 2 % notest ab. Not Available [facility] ([facility]) [address] [facility], [place], [address], 08/13/2024 09:08:59 08/07/19 25 08/08/2024 CBC WITH DIFFE RENTI AL/PL ATELE T basos 1 % notest ab. Not Available [facility] ([facility]) [address] [facility], [place], [address], 08/13/2024 09:08:59 08/07/19 25 08/08/2024 CBC WITH DIFFE RENTI AL/PL ATELE T neutrophils (absolute) 6.7 x10e3 /uL 1.4-7. 0 Not Available [facility] ([facility]) [address] [facility], [place], [address], 08/13/2024 09:08:59 08/07/19 25 08/08/2024 CBC WITH DIFFE RENTI AL/PL ATELE T lymphs (absolute) 2.1 x10e3 /uL 0.7-3. 1 Not Available [facility] ([facility]) [address] [facility], [place], [address], 08/13/2024 09:08:59 08/07/19 25 08/08/2024 CBC WITH DIFFE RENTI AL/PL ATELE T monocytes(ab solute) 0.5 x10e3 /uL 0.1-0. 9 Not Available [facility] ([facility]) [address] [facility], [place], [address], 08/13/2024 09:08:59 08/07/19 25 08/08/2024 CBC WITH DIFFE RENTI AL/PL ATELE T eos (absolute) 0.2 x10e3 /uL 0.0-0. 4 Not Available [facility] ([facility]) [address] [facility], [place], [address], 08/13/2024 09:08:59 08/07/19 25 08/08/2024 CBC WITH DIFFE RENTI AL/PL ATELE T baso (absolute) 0.1 x10e3 /uL 0.0-0. 2 Not Available [facility] ([facility]) [address] [facility], [place], [address], 08/13/2024 09:08:59 08/07/19 25 08/08/2024 CBC WITH DIFFE RENTI AL/PL ATELE T immature granulocytes 0 % notest ab. Not Available [facility] ([facility]) [address] [facility], [place], [address], 08/13/2024 09:08:59 08/07/19 25 08/08/2024 CBC WITH DIFFE RENTI AL/PL ATELE T immature grans (abs) 0.0 x10e3 /uL 0.0-0. 1 Not Available [facility] ([facility]) [address] [facility], [place], [address], 08/13/2024 09:08:59 08/07/1908/08/2024 SEDIM ENTAT ION RATE- WESTE RGREN sedimentatio n rate-westerg antoinette 10 mm/HR 0-32 Not Available [facility] ([facility]) [address] [facility], [place], [address], 08/13/2024 09:09:00 08/07/1908/08/2024 C-JALEN CTIVE PROTE IN, QUANT C-reactive protein, quant 5 mg/L 0-10 Not Available [facility] ([facility]) [address] [facility], [place], [address], 08/13/2024 09:09:02 08/07/1908/08/2024 VITAM IN D, 25-HY DROXY vitamin D, 25-hydroxy 16.8 NG/mL 30.0-1 00.0 below low normal Vitam in D defic iency has been defin ed by the Insti tute of Medic ine and an Endoc rine Socie ty pract ice guide line as a level of serum 25-OH vitam in D less than 20 ng/mL (1,2) . The Endoc rine Socie ty went on to furth er defin e vitam in D insuf ficie ncy as a level betwe en 21 and 29 ng/mL (2). 1. IOM (Inst itute of Medic ine). 2010. Dieta ry refer ence intak es for calci um and D. Markel morales [place]: The Natio nal [facility] [facility] Press . 2. Isabella canseco MF, Daily [place], Ivania off-F errsinan i ARRIAZA, et al. Evalu ation , treat ment, and preve ntion of vitam in D defic iency : an Endoc rine Socie ty clini demarcus pract ice guide line. JCEM. 2010; 96(7) :1911 -30. Not Available [facility] ([facility]) [address], [place], [address], 08/13/2024 09:09:03 05/20/20 24 05/20/2024 MRI, brain , w/wo contr ast No observ ation record ed. [address], [place], [address], 05/20/2024 21:34:19 Result Notes None recorded. Problems Name Problem SNOMED Code Status Onset Date Resolution Date Notes Provider Name and Address Organization Details Recorded Time Body mass index 30+ - obesity 662012056 Active 024 Yudy Jaffe MA null, [place] - [facility] 4 09:25:13 Obesity 971901502 Active 024 TOBIN Martinez Attn: Accounting ,[address] [place], [address] , [facility] - [facility] 4 09:39:44 Sleep disorder 22442129 Active 024 TOBIN Martinez Attn: Accounting ,[address] [place], [address] , [facility] - [facility] 4 09:24:12 Multiple joint pain 43422191 Active 024 TOBIN Martinez Attn: Accounting ,[address] [place], [address] , [facility] - [facility] 4 09:24:14 Problem Notes None recorded. Procedures Surgical History Date Name Laterality Status Provider Name and Address Organization Details Recorded Time Tubal Ligation completed Yudy Jaffe [place] [facility] 06/17/2024 09:21:25 ovarian ablation completed Yudy Jaffe [place] [facility] 06/17/2024 09:21:18 Imaging Results Imaging Date Name Status LastModified by Organiz ation Details LastModified Time 05/20/2024 MRI, brain, w/wo contrast completed [address], [place], [address], 05/20/2024 21:34:19 Procedure Notes None recorded. Medical Equipment None Reported. Allergies No known drug allergies Medications Name Sig Start Date Stop Date Status Note LastModified by Organization Details LastModified Time trazodone 50 mg tablet take 1-2 tabs po qhs 2023 active Not Available Not Available Not Avai lable cetirizine 10 mg tablet TAKE 1 TABLET BY MOUTH ONCE DAILY FOR ALLERGY SYMPTOMS 06/17 completed Not Available Not Available Not Available hydrocodone 5 mg-acetamin ophen 325 mg tablet TAKE 1 TABLET BY MOUTH EVERY 8 HOURS NEEDED FOR PAIN 06/17 completed Not Available Not Available Not Available Medrol (Rikki) 4 mg tablets in a dose pack take as directed 2023 active Not Available Not Available Not Avai lable prednisone 20 mg tablet TAKE 2 TABLETS BY MOUTH ONCE DAILY FOR 5 DAYS 06/17 completed Not Available Not Available Not Available phentermine 37.5 mg tablet Take 1 tablet by mouth once daily active Not Available Not Available No t Available amoxicillin 875 mg tablet TAKE 1 TABLET BY MOUTH EVERY 12 HOURS FOR 7 DAYS 06/17 completed Not Available Not Available Not Available ergocalcife rol (vitamin D2) 1,250 mcg (50,000 unit) capsule Take 1 capsule every week by oral route. 2024 active Not Available Not Available Not Avai lable ibuprofen 600 mg tablet TAKE 1 TABLET BY MOUTH THREE TIMES DAILY 06/17 completed Not Available Not Available Not Available fluticasone propionate 50 mcg/actuati on nasal spray,suspe nsion USE 1 SPRAY(S) IN EACH NOSTRIL TWICE DAILY 06/17 completed Not Available Not Available Not Available Vitals Date Recorded Body weight Body mass index (BMI) Body height Respiratory rate Oxygen saturation Oxygen saturation in Arterial blood by Pulse oximetry Heart rate Systolic blood pressure Diastolic blood pressure Provider Name and Address Organization Details Last Updated DateTime 4 137298. 97 g 36 kg/m2 175.26 cm 20 /min 98 % 98 % 80 /min 130 mm[Hg] 78 mm[Hg] Yudy Jaffe [place] - [facility] 4 15:23:54 Date Recorded Body height Body mass index (BMI) Body weight Oxygen saturation Oxygen saturation in Arterial blood by Pulse oximetry Heart rate Systolic blood pressure Diastolic blood pressure Provider Name and Address Organization Details Last Updated DateTime 175.26 cm 34.9 kg/m2 868657. 8 g 98 % 98 % 70 /min 128 mm[Hg] 82 mm[Hg] Yudy Jaffe MA [facility] 09:23:43 Date Recorded Systolic blood pressure Diastolic blood pressure Provider Name and Address Organization Details Last Updated DateTime 06/17/2024 120 mm[Hg] 80 mm[Hg] TOBIN Martinez Attn: Accounting,[address] [facility], [place], [address], [facility] 06/17/2024 09:40:47 Social History Question Answer Notes LastModified by Organizat ion Details LastModified Time Tobacco Smoking Status Never Smoker Yudy Jaffe MA null, [facility] 11/14/2023 15:20:49 Do You Have An Advance Directive? No Information n ot available 06/17/2024 What Is Your Level Of Alcohol Consumption? None Information not available 11/14/2023 Are You Blind Or Do You Have Difficulty Seeing? No Information n ot available 11/14/2023 What Is Your Level Of Caffeine Consumption? Moderate Information not available 11/14/2023 In The 14 Days Before Symptom Onset, Have You Had Close Contact With A Laboratory-confirm ed COVID-19 While That Case Was Ill? No Information n ot available 11/14/2023 In The 14 Days Before Symptom Onset, Have You Had Close Contact With A Person Who Is Under Investigation For COVID-19 While That Person Was Ill? No Information not available 11/14/2023 Have You Been To An Area Known To Be High Risk For COVID-19? No Information not available 11/14/2023 Are You Currently Employed? Yes Information not available 11/14/2023 Are You Deaf Or Do You Have Serious Difficulty Hearing? No Information not available 11/14/2023 What Type Of Diet Are You Following? REGULAR Information n ot available 11/14/2023 Are There Any Guns Present In Your Home? No Information not available 11/14/2023 What Was The Date Of Your Most Recent Tobacco Screening? 06/17/2024 Information not available 06/17/2024 What Is Your Relationship Status? Domestic Partner Information not available 06/17/2024 Do You Use Your Seat Belt Or Car Seat Routinely? Yes Information not available 11/14/2023 Do You Have Smoke And Carbon Monoxide Detectors In Your Home? Yes Information not available 11/14/2023 Do You Feel Stressed (tense, Restless, Nervous, Or Anxious, Or Unable To Sleep At Night)? [id number] Information not available 11/14/2023 Do You Use Any Illicit Or Recreational Drugs? No Information not available 11/14/2023 Do You Use Sunscreen Routinely? Yes Information not available 11/14/2023 Has Tobacco Cessation Counseling Been Provided? Yes Information not available 11/14/2023 On What Date Was Tobacco Cessation Counseling Provided? 06/17/2024 Information not available 06/17/2024 Do You Or Have You Ever Used Any Other Forms Of Tobacco Or Nicotine? No Information not available 11/14/2023 Sex: Female Functional Status Question Answer Note LastModified by Organization D etails LastModified Time Are you able to care for yourself? Yes Information not available 11/14/2023 What is your exercise level? Moderate Information not available 11/14/2023 Mental Status None recorded. Family History Relationship Description Onset Age of this Age Resolved Age Notes LastModified by Organization Details LastModified Time Brother Asthma tcarterma Not available 06/17/2024 09:27:34 Brother Attention deficit hyperactivit y disorder tcarterma Not available 06/17 09:27:44 Sister Attention deficit hyperactivit y disorder tcarterma Not available 06/17 09:27:44 Medical History No medical history recorded. Gynecological History Statement/Question Response Flow Heavy Date of LMP 02/27/2024 Frequency of Cycle (Q days) 28 Menses Monthly Y Duration of Flow (days) 6 Current Control Method Tubal Ligat ion LMP Approximate Obstetrics History GPAL:G 1 P 1 0 0 1 Type Value Full Term 1 Induced 0 Spontaneous 0 Premature 0 Living 1 Total 1 Past Encounters Encounter ID Performer Location Encounter Start Date Encounter Closed Date Diagnosis/Indication Diagnosis SNOMED-CT Code Diagnosis ICD10 Code Diagnosis Note [id number] TOBIN Martinez [facility] [employer] [address] [place] [address] 11/14/2023 15:00:17 11/14/2023 15:51:34 Butterfly rash 96353117 R21 Check YAMILEX w/multiple x panel Menorrhagia 993007312 N9 2.0 Heavy menstrual cycles reported. check CBC and iron studies. Cholesterol screening 27 9915343 Z13.220 fasting lipids due Diabetes m ellitus screening 768956567 Z13.1 a1c screening due Body mass index 30+ - obesity 033235757 Z68.36 fasting insulin lab due. Fatigue 06086293 R53.83 sleep study a year or two ago did not show any apnea. Recheck B12, folate, vit D, cmp and start phentermin e trial to help with fatigue and weight. Multiple joint pain 3567 8005 M25.50 check full RA panel, ESR, CRP labs Paresthesia 68183991 R20 .2 refer for MRI brain w/wo contrast for persistent paresthesi as noted. Refer to Neurology as she has a myriad of neurologic symptoms that are frequent. Sleep disorder 09629941 G47.9 Start trazodone 50-100mg qhs [id number] TOBIN Martinez [facility] [employer] [address] [place] [address] 06/17/2024 09:16:40 06/17/2024 09:46:08 Body mass index 30+ - obesity 082914144 Z68.34 BMI is 34.9 Obesity 415035463 E66.9 discussed healthy diet, exercise, controllin g carbohydra michael and added sugars in the diet Butterfly rash 75776588 R21 Patient did not complete her labs that were ordered in the spring so we are reordering everything . Paresthesia 23824788 R20 .2 pt has persistent paresthesi as noted. saw neurology once and MRI brain from them was negative. she does need to f/u with them. she has had some numbness around mouth more recent episode that was new and lasted 30 min. Multiple joint pain 3567 8005 M25.50 Multiple joint pain continues to be a problem for the patient. She has seen Rheumatolo qiana in the past with no clear diagnoses. Repeat rheumatoid panel as well as sed rate and C-reactive protein Fatigue 54738935 R53.83 Patient did not complete the labs that were ordered in the spring so those are being reordered Sleep disorder 65011109 G47.9 trazodone 50-100mg qhs, dose refilled Pain of ri ght shoulder joint 7630956548 9146367 M25.511 1 month of symptoms now. no known injury. daily pain. ROM is limited. Start Medrol Dosepak Menorrhagia 347885917 N9 2.0 Patient had hysterosco py with ablation in April for menorrhagi a. We will also check repeat CBC and iron studies and thyroid Cholesterol screening 27 7725205 Z13.220 fasting lipids due Diabetes m ellitus screening 842686140 Z13.1 a1c screening due Health Concerns Section Related Observation LastModified by Organization Detai ls LastModified Time None Recorded Concern Status LastModified by Organization Details LastModified Time None Recorded Advance Directives Directive N: Payers Encounter Date Sequence Insurance Name Policy Number Policy Franco Covered Member ID Franco Member ID Guarantor Name 11/14/2023 1 [facility] [id number] Adela Kumar [id number] Adela Kumar 06/17/2024 1 [facility] [id number] Adela Kumar [id number] Adela Kumar Notes Date Note Type Note Provider Name and Address Organization Details Recorded Time 11/14/2023 text/html Generic HPI TemplateReported bypatient.Notes:butter fly rash at times; hands feet and legs with pins and needles often. electric shock feeling throughout body like a rubber band hitting her on her inside Had an episode of tripping on a crack in concrete and body went stiff .Dreaming is very vivid right now, and feeling exhausted in the morning like she's not rested.Hx of sleep study normal at last office.Fatigue is awful 24/7Eye twitching randomly now.Difficulty telling difference between hot and very hot temperature.Brain fog and forgetfulness.Heavy menstrual cycles.Cramps and muscle spasms in hands and feet.Pt's sister has MENARD, depression, anxiety, ptsd, MVP, fibromyalgia, endometriosis.Pt's mother has CVD, Raykenan MENARD , of stroke at 61. TOBIN Martinez Attn: Accounting,[address] [facility], [place], [address], [facility] 11/18/2023 09:07:22 06/17/2024 text/html Generic HPI TemplateReported bypatient.Notes:Past medical history remains the same with no changes.Butterfly rash at times; hands feet and legs with pins and needles often. electric shock feeling throughout body like a rubber band hitting her on her inside Had an episode of tripping on a crack in concrete and body went stiff .Dreaming is very vivid right now, and feeling exhausted in the morning like she's not rested.Hx of sleep study normalFatigue is awful 24/7Eye twitching randomly now.Difficulty telling difference between hot and very hot temperature.Brain fog and forgetfulness.Cramps and muscle spasms in hands and feet.Pt's sister has MENARD, depression, anxiety, ptsd, MVP, fibromyalgia, endometriosis.Pt's mother has CVD, Raykenan, MENARD , of stroke at 61. TOBIN Martinez Attn: Accounting,[address] [facility], [place], [address], [facility] 06/22/2024 09:28:20 OBGyn Episode No OBEpisode recorded.
--- OUTSIDE RECORDS SUMMARY | 2024-08-26 13:17 | XMS_ITS | Clinical Summary ---
Author Organization [facility] Address [facility] [place] [address] Care Team Providers Care Administrator Pesticide Name Role Phone Erlinda Feldman Primary Care Provider [phone] Allergies No known active allergies Medications No known medications Active Problems Problem Noted Date Diagnosed Date Frontal sinusitis 05/23/2023 Maxillary sinusitis 05/23/2023 Butterfly rash 05/23/2023 Cough 05/23/2023 Fatigue 05/23/2023 Hypomenorrhea 05/23/2023 Irregular periods 05/23/2023 Multiple joint pain 05/23/2023 Nasal congestion 05/23/2023 Neck swelling 05/23/2023 Night sweats 05/23/2023 Impaired glucose tolerance 03/18/2023 Insulin resistance 03/18/2023 Vitamin D deficiency 03/18/2023 Weight gain 03/18/2023 Acute sinusitis 09/30/2021 History of severe acute resp iratory syndrome coronavirus 2 (SARS-CoV-2) disease 09/25/2021 Facial rash 09/11/2021 Overview (05/23/2023): Labs (09/11/21): Cmp/cbc wnl, ESR 11, CRP 11.2, UA trace proteinuria, 3+ blood, neg chromatin AVISE (09/11/21): YAMILEX 1:320 homogenous, neg anti-histone and carP, elevated C3 Last Assessment & Plan: Serologies reveal a +YAMILEX 1:320 homogenous pattern [...] up as needed. Seen with Dr. Martin. Vitamin B12 deficiency (non anemic) 09/01/2021 Adiposity 09/07/2014 Overview (05/23/2023): Obesity Immunizations Name Administration Dates Next Due MODERNA COVID-19 (12+) MRNA, LNP-S, PF, 100 MCG/ 0.5 ML DOSE 10/08/2020,09/10/2020 Social History Tobacco Use Types Packs/Day Years Used Date Smoking Tobacco: Never Smokeless Tobacco: Never Tobacco Cessation:Counseling Given: No Alcohol Use Standard Drinks/Week Comments Not Currently 0 (1 standard drink = 0.6 oz pur e alcohol) PHQ-2 Answer Date Recorded Patient Health Questionnaire-2 Score 0 04/20/2024 Comments No Sex and Gender Information Value Date Recorded Sex Assigned at Not on file Legal Sex Female 9:27 AM CDT Gender Identity Not on file Sexual Orientation Not on file Last Filed Vital Signs Vital Sign Reading Time Taken Comments Blood Pressure 103/69 04/20/2024 7:40 AM CDT Pulse 66 04/20/2024 7:40 AM CDT Temperature 36.9 ??C (98.5 ??F) 08/16/2023 2:09 PM CS T Respiratory Rate 18 08/16/2023 2:09 PM FRONT OFFICE CLERK Oxygen Saturation 99% 04/20/2024 7:40 AM CDT Inhaled Oxygen Concentration - - Weight 106.6 kg (235 lb) 04/20/2024 7:40 AM CDT Height 175.3 cm (5' 9 ) 04/20/2024 7:40 AM CDT Body Mass Index 34.7 04/20/2024 7:40 AM CDT Plan of Treatment Health Maintenance Due Date Last Done Comments Cervical Cancer Screening Pa p Smear (Age 30 to 64) Every 3 Years 1985 Annual Physical 1988 Hepatitis C 2003 DTaP, Tdap and Td Vaccines ( 1 - Tdap) 2004 Hepatitis B Vaccines (1 of 3 - 19+ 3-dose series) 2004 Cervical Cancer Screening Pa p with HPV Testing (Age 30 to 64) Every 5 Years 2015 Cervical Cancer Screening wi th HPV 2015 COVID-19 Vaccine (3 - 2023-2 5 season) 2024 10/08/2020, 09/10/2020 Influenza Adult (#1) 2024 PHQ-2 (Physician [place]) 07/22/2024 04/20/2024 PHQ-2 (Physician [place]) 04/20/2025 04/20/2024 HPV Vaccines Aged Out No longer eligi ble based on patient's age to complete this topic Meningococcal B Vaccine Aged Out No l onger eligible based on patient's age to complete this topic Meningococcal Vaccine Aged Out No robert bernarda eligible based on patient's age to complete this topic Pneumococcal Vaccine: Pediatrics (0 to 5 Years) and At-Risk Patients (6 to 64 Years) Aged Out No longer eligible b ased on patient's age to complete this topic RSV Immunizations Under 20 Months Aged Out No longer eligible b ased on patient's age to complete this topic Insurance [facility] Care Teams Administrator Pesticide Relationship Specialty Start Date End Date Erlinda Feldman PA [address] [place] [address] PCP - General PHYSICIAN H[employer] PRESS OPERATOR 03/12/21
--- OUTSIDE RECORDS SUMMARY | 2024-08-26 13:17 | XMS_ITS | Clinical Summary ---
Author Organization [facility] Address [address] [place] [address] Care Team Providers Care Slackman Name Role Phone Vasquez Feldmanmarvin RUDD Primary Care Pr ovider Eduardo Martin MD Unavailable [phone] Allergies No known active allergies Medications metFORMIN [...] Martin. Assessment & Plan (09/11/2021 5:10 PM INSTRUCTOR WEAVING): 36-year-old female presenting with PMHx migraines and [...] Dr. Martin. Adiposity 09/07/2014 Overview (10/25/2016): Obesity Family History Medical History Relation Name Comments Diabetes type II Other Family hist ory of Diabetes mellitus type 2; Relation Name Status Comments Other Social History Tobacco Use Types Packs/Day Years Used Date Smoking Tobacco: Never Alcohol Use Standard Drinks/Week Comments Yes 0 (1 standard drink = 0.6 oz pur e alcohol) Comments Unknown Sex and Gender Information Value Date Recorded Sex Assigned at Not on file Legal Sex Female 5:01 PM INSTRUCTOR WEAVING Gender Identity Not on file Sexual Orientation Not on file Obstetrics History Last Filed Vital Signs Vital Sign Reading Time Taken Comments Blood Pressure 130/84 09/11/2021 2:15 PM INSTRUCTOR WEAVING Pulse 67 09/11/2021 2:15 PM INSTRUCTOR WEAVING Temperature 36.8 ??C (98.2 ??F) 10/02/2021 1:03 PM CD T Respiratory Rate - - Oxygen Saturation 98% 09/11/2021 2:15 PM INSTRUCTOR WEAVING Inhaled Oxygen Concentration - - Weight 112.1 kg (247 lb 3.2 oz) 10/02/2021 1:03 PM CDT Height 170.2 cm (5' 7 ) 10/23/2016 1:26 PM CDT Body Mass Index 38.72 10/23/2016 1:26 PM CDT Plan of Treatment Health Maintenance Due Date Last Done Comments Cervical Cancer Screening 1985 Depression Screening 1985 Hepatitis C Screening 1985 DTaP/Tdap/Td Vaccine (1 - Tdap) 1996 Varicella Vaccines (1 of 2 - 13+ 2-dose series) 1998 Hepatitis B Screening 2003 Regular Well Visit/Exam 18-64 2003 Covid-19 Vaccine (4 - 2023-2 5 season) 2024 10/08/2020, 09/19/2020, 09/04/2020 Influenza Vaccine (#1) 2024 HPV Vaccines Aged Out No longer eligi ble based on patient's age to complete this topic Pneumococcal vaccine <65 Aged Out No longer eligible based on patient's age to complete this topic Insurance [employer] [facility] CHOICE PLUS [facility] H[facility]/PPO Address: [facility] [address] [place] [address] Care Teams Slackman Relationship Specialty Start Date End Date Erlinda Feldman PA PCP - General 10/19/16 Eduardo Martin MD [address] [place] [address] Consulting Physician Rheumatology 08/01/21
--- OUTSIDE RECORDS SUMMARY | 2024-08-26 13:17 | XMS_ITS | Data Portability ---
Author Organization [facility] Reasult, Main Office Address [address] [place] [address] Assessment No assessment recorded. Plan of Treatment Reminders Order Date Submit Date Provider Last Modified By Organization Details Last Modified Time Details Appointments None recorded. Lab TSH + free T4, serum 2022 023 [email or web address] [facility], [address] [address], [place], [address], 4 16:33:24 T3, free, serum or plasma 2022 023 [email or web address] [facility], [address] [place] [address], [place], [address], 4 16:33:24 YAMILEX (antinuclea r antibodies) screen, serum 2022 023 [email or web address] [facility], [address] [place] [address], [place], [address], 4 16:33:23 HbA1c (hemoglobin A1c), blood 2022 023 [email or web address] [facility], [address] [place] [address] 2, [place], [address], 4 16:33:23 insulin, serum 2022 023 [email or web address] [facility], [address] [address], [place], [address], 4 16:33:22 lipid panel, serum 08/28/ 2023 08/28/2 023 [email or web address] [facility], [address] [address], [place], [address], 4 16:33:23 CMP, serum or plasma 2022 023 [email or web address] [facility], [address] [address], [place], [address], 4 16:33:23 CBC w/ auto diff 2022 023 [email or web address] [facility], [address] [place] [address], [place], [address], 4 16:33:23 iron + TIBC + ferritin, serum 2022 023 [email or web address] [facility], [address] [place] [address], [place], [address], 4 16:33:24 vitamin B12 + folate, serum or blood 2022 023 [email or web address] [facility], [address] [place] [address], [place], [address], 4 16:33:25 vitamin D, 25-hydroxy, total, serum 2022 023 [email or web address] [facility], [address] [place] [address], [place], [address], 4 16:33:25 rf (rheumatoid factor), serum 2022 023 [email or web address] [facility], [address] [place] [address] 2, [place], [address], 4 16:33:23 C reactive protein, QN, serum or plasma 2022 023 [email or web address] [facility], [address] [place] [address] 2, [place], [address], 4 16:33:24 ESR (erythrocyt e sedimentati on rate), blood 2022 023 [email or web address] [facility], [address], [address], [place], [address], 4 16:33:24 Referral None recorded. Procedures None recorded. Surgeries None recorded. Imaging None recorded. Medication Orders phentermine 37.5 mg tablet 2022 023 [email or web address] [facility] [address], [place], [address], 3 14:15:19 Patient TargetsNo targets recorded. Patient InstructionsNo instructions recorded. Reason for Referral None Reported. Results Created Date Observation Date Name Description Value Unit Range Abnormal Flag Note LastModifiedBy Organization Detail LastModifiedTime 06/26/20 21 06/26/2021 pregn ricarda test, urine HCG negati ve Not Available [facility] [address], [address], [place], [address], 06/26/2021 16:39:59 08/09/19 22 08/09/2021 XR, chest , 2 view No observ ation record ed. [id number], [place], [address], 09/19/2022 07:36:21 11/30/19 22 11/17/2021 polys omnog annette, split night No observ ation record ed. [id number] [facility] ([facility]) [address] [place], [address], 09/19/2022 07:36:21 Result Notes None recorded. Problems Name Problem SNOMED Code Status Onset Date Resolution Date Notes Provider Name and Address Organization Details Recorded Time Acute sinusitis 45264273 Active 2021 Not Available [facility] 3 07:31:35 History of SARS-CoV- 2 49434966872 4591902 Active 2021 Not Available [facility] 3 07:31:35 Neck swelling 506192714 Active Not Available [facility] 3 07:31:35 Butterfly rash 57790127 Active Not Available [facility] 3 07:31:35 Multiple joint pain 54365584 Active Not Available [facility] 3 07:31:35 Night sweats 66746167 Active Not Available [facility] 3 07:31:35 Acute urinary tract infection 677075659 Active 2022 Not Available [facility] 3 07:31:36 Cough 75910601 Active Not Available [facility] 3 07:31:36 Vitamin B12 deficienc y (non anemic) 63145316 Active 2021 Not Available [facility] 3 07:31:36 Hypomenor melida 88258515 Completed Not Available [facility] 3 07:31:36 Nasal congestio n 41749047 Active Not Available [facility] 3 07:31:36 Frontal sinusitis 47151087 Active Not Available [facility] 3 07:31:36 Irregular periods 13995441 Completed Not Available [facility] 3 07:31:36 Fatigue 61099256 Active Not Available [facility] 3 07:31:36 Maxillary sinusitis 02690395 Active Not Available [facility] 3 07:31:36 Insulin resistanc e 527128406 Active 2022 TOBIN Martinez [address], [address], [address] , [employer] 3 16:13:49 Impaired glucose tolerance 7766649 Active 2022 TOBIN Martinez [address], [address], [place], [address] , [employer] 3 16:14:30 Weight gain 3494361 Active 2022 TOBIN Martinez [address], [address], [place], [address] , [employer] 3 16:15:10 Vitamin D deficienc y 76174796 Active 2022 TOBIN Martinez [address], [address], [place], [address] , [facility] [employer] 3 16:16:40 Stomach cramps 87941113 Active 2022 TOBIN Martinez [address], [address], [place], [address] , [employer] 3 17:28:54 Notes:COVID-19 pos 07/15/21 Problem Notes None recorded. Procedures Surgical History Date Name Laterality Status Provider Name and Address Organization Details Recorded Time 05/08/2018 Date of Last Pap Smear completed Not Available [facility] 09/19/2022 07:26:54 Imaging Results Imaging Date Name Status LastModified by [facility] Details LastModified Time 11/17/2021 polysomnogr am, split night completed [id number] [facility] ([facility]) [address] [place], [address], 09/19/2022 07:36:21 08/09/2021 XR, chest, 2 view completed [id number], [place], [address], 09/19/2022 07:36:21 Procedure Notes None recorded. Medical Equipment None Reported. Allergies No known drug allergies Medications Name Sig Start Date Stop Date Status Note LastModified by Organization Details LastModified Time Aviane 0.1 mg-20 mcg tablet Take 1 tablet every day by oral route. 06/05 completed Not Available Not Available Not Available azithromyci n 250 mg tablet TAKE 2 TABLETS BY MOUTH ON DAY 1, AND THEN TAKE 1 TABLET BY MOUTH ONCE A DAY ON DAY 2 THROUGH DAY 5 11/17 completed Not Available Not Available Not Available benzonatate 200 mg capsule Take 1 capsule 3 times a day by oral route as needed. 08/05 completed Not Available Not Available Not Available hydrocodone 5 mg-acetamin ophen 325 mg tablet TK 1 T PO Q 6 H PRN P 06/05 completed Not Available Not Available Not Available Medrol (Rikki) 4 mg tablets in a dose pack use as directed 08/23 completed Not Available Not Available Not Available prednisone 20 mg tablet TAKE 2 TABLETS BY MOUTH ONCE DAILY FOR 5 DAYS active Not Available Not Available No t Available [employer] USE DIRECTED 03/18 completed Not Available Not Available Not Available phentermine 37.5 mg tablet TAKE 1 TABLET BY MOUTH ONCE DAILY IN THE MORNING active Not Available Not Available No t Available sulfamethox azole 800 mg-trimetho prim 160 mg tablet TAKE 1 TABLET BY MOUTH TWICE DAILY FOR 7 DAYS 08/14 completed Not Available Not Available Not Available famotidine 20 mg tablet 02/20 completed Not Available Not Available Not Available tamsulosin 0.4 mg capsule 06/05 completed Not Available Not Available Not Available benzonatate 100 mg capsule TAKE 1 CAPSULE BY MOUTH EVERY 8 HOURS NEEDED active Not Available Not Available No t Available cyanocobala min (vit B-12) 1,000 mcg/mL injection solution Inject 2 mL every month by subcutane ous route. 03/18 completed [facility] # [phone] Not Available Not Available Not Available Cipro 500 mg tablet Take 1 tablet every 12 hours by oral route. 06/05 completed Not Available Not Available Not Available codeine 10 mg-guaifene sin 100 mg/5 mL oral liquid Take 10 mL every 4-6 hours by oral route as needed. 09/25 completed Not Available Not Available Not Available zolpidem 5 mg tablet 03/18 completed Not Available Not Available Not Available ibuprofen 600 mg tablet Take by oral route as needed for 5 days. 06/05 completed Not Available Not Available Not Available hydrocodone 10 mg-chlorphe niramine 8 mg/5 mL oral susp extend.rel 12hr TAKE 5ML PO Q 12 H 02/20 completed Not Available Not Available Not Available albuterol sulfate HFA 90 mcg/actuati on aerosol inhaler Inhale 2 puffs every 4-6 hours by inhalatio n route as needed. 03/18 completed Not Available Not Available Not Available Vitamin D2 1,250 mcg (50,000 unit) capsule Take 1 capsule every week by oral route. 06/05 completed Not Available Not Available Not Available ondansetron 4 mg disintegrat ing tablet 06/05 completed Not Available Not Available Not Available metformin ER 500 mg tablet,exte nded release 24 hr TAKE 1 TABLET BY MOUTH ONCE DAILY WITH DINNER 03/18 completed Not Available Not Available Not Available dicyclomine 10 mg capsule TAKE 1 CAPSULE BY MOUTH THREE TIMES DAILY NEEDED active Not Available Not Available No t Available spironolact one 50 mg tablet TAKE 1 TABLET BY MOUTH ONCE DAILY IN THE MORNING 03/18 completed Not Available Not Available Not Available amoxicillin 875 mg-potassiu m clavulanate 125 mg tablet TAKE 1 TABLET BY MOUTH EVERY 12 HOURS active Not Available Not Available No t Available Sprintec (28) 0.25 mg-35 mcg tablet TAKE 1 TABLET BY MOUTH ONCE DAILY 03/18 completed Not Available Not Available Not Available nitrofurant oin monohydrate /macrocryst als 100 mg capsule TAKE 1 CAPSULE BY MOUTH EVERY 12 HOURS 09/24 completed Not Available Not Available Not Available Vitals Date Recorded Body height Body height Body height Body temperature Provider Name and Address Organization Details Last Updated DateTime 09/19/2022 177.8 cm 177.8 cm 177.8 cm 97.2 [degF] Not Available [facility] 09/19/2022 07:30:47 Date Recorded Body height Body temperature Body mass index (BMI) Body weight Respiratory rate Oxygen saturation Oxygen saturation in Arterial blood by Pulse oximetry Heart rate Systolic blood pressure Diastolic blood pressure Provider Name and Address Organization Details Last Updated DateTime 177.8 cm 97.7 [degF] 35.2 kg/m2 883744. 13 g 16 /min 98 % 98 % 75 /min 122 mm[Hg] 72 mm[Hg] DAINA Barton [employer] 3 15:52:45 Date Recorded Systolic blood pressure Diastolic blood pressure Provider Name and Address Organization Details Last Updated DateTime 03/18/2023 120 mm[Hg] 70 mm[Hg] TOBIN Martinez [address] [facility], [facility] [address], [place], [address], [employer] 03/18/2023 16:17:29 Social History Question Answer Notes LastModified by Organizat ion Details LastModified Time Tobacco Smoking Status Never Smoker Not Available [facility] 09/19/2022 07:26:49 What Is Your Level Of Alcohol Consumption? None [id number] Information not available 09/19/2022 What Is Your Level Of Caffeine Consumption? None [id number].[id number] Information not available 09/19/2022 How Much Tobacco Do You Chew? None MIGRATION.[id number] Information not available 09/19/2022 In The 14 Days Before Symptom Onset, Have You Had Close Contact With A Laboratory-confir med COVID-19 While That Case Was Ill? No MIGRATION.[id number] Information not available 09/19/2022 In The 14 Days Before Symptom Onset, Have You Had Close Contact With A Person Who Is Under Investigation For COVID-19 While That Person Was Ill? No MIGRATION.[id number] 2434 Information not available 09/19/2022 Are You Currently Employed? Yes [email or web address] Information not available 09/24/2022 What Type Of Diet Are You Following? REGULAR MIGRATION.[id number] Information not available 09/19/2022 Which Illicit Or Recreational Drugs Have You Used? None MIGRATION.[id number] Information not available 09/19/2022 Do You Or Have You Ever Used E-cigarettes Or Vape? Never Used Electronic Cigarettes MIGRATION.[id number] Information not available 09/19/2022 What Is Your Occupation? [employer] MIGRATION.[id number] 8169 Information not available 09/19/2022 Have There Been Any Changes To Your Family Or Social Situation? No MIGRATION.[id number] Information not available 09/19/2022 Do You Use Insect Repellent Routinely? No [email or web address] Information not available 09/24/2022 What Is Your Relationship Status? Single MIGRATION.[id number] 3758 Information not available 09/19/2022 Do You Use Your Seat Belt Or Car Seat Routinely? Yes MIGRATION.435534 3724 Information not available 09/19/2022 Do You Have Smoke And Carbon Monoxide Detectors In Your Home? Yes MIGRATION.372663 8535 Information not available 09/19/2022 Do You Or Have You Ever Used Smokeless Tobacco? Never Used Smokeless Tobacco MIGRATION.763886 9548 Information not available 09/19/2022 How Much Tobacco Do You Smoke? No MIGRATION.104441 2969 Information not available 09/19/2022 Do You Use Any Illicit Or Recreational Drugs? No MIGRATION.000574 1448 Information not available 09/19/2022 Do You Use Sunscreen Routinely? Yes [email or web address] Information not available 09/24/2022 Have You Recently Traveled Abroad? No MIGRATION.381566 0761 Information not available 09/19/2022 Do You Have Any Dietary Restrictions? No MIGRATION.630955 5245 Information not available 09/19/2022 Do You Or Have You Ever Used Any Other Forms Of Tobacco Or Nicotine? No MIGRATION.314846 5875 Information not available 09/19/2022 Sex: Female Functional Status Question Answer Note LastModified by Organizat ion Details LastModified Time What is your exercise level? Occasional [id number] Information not available 09/19/2022 Mental Status None recorded. Family History Relationship Description Onset Age of this Age Resolved Age Notes LastModified by Organization Details LastModified Time Father Vitamin D deficiency MIGRATION.[id number] Not available 09/19/2022 07:26:58 Maternal Grandmother Malignant tumor of breast MIGRATION.862 [id number] Not available 09/19/2022 07:26:58 Unspecified Relation Malignant tumor of colon MIGRATION.651 [id number] Not available 09/19/2022 07:26:58 Unspecified Relation Malignant tumor of lung MIGRATION.407 [id number] Not available 09/19/2022 07:26:58 Unspecified Relation Diabetes mellitus MIGRATION.315 [id number] Not available 09/19/2022 07:26:58 Mother Diabetes mellitus MIGRATION.392 [id number] Not available 09/19/2022 07:26:58 Mother Cerebrovascu lar accident MIGRATION.657 [id number] Not available 09/19/2022 07:26:58 Mother Hypertensive disorder MIGRATION.891 [id number] Not available 09/19/2022 07:26:58 Mother Heart disease Pacema ker MIGRATION.166 [id number] Not available 09/19/2022 07:26:58 Mother Cirrhosis of liver MIGRATION.321 [id number] Not available 09/19/2022 07:26:58 Mother Raynaud's disease Not available 03/18 15:51:22 Mother Carotid artery stenosis [email or web address] Not available 03/18 15:51:56 Mother Nonalcoholic steatohepati tis [email or web address] Not available 03/18 15:54:23 Medical History Condition Response HEADACHES/MIGRAINES Y ANXIETY DISORDER Y OBESITY Y KIDNEY STONES Y DIZZINESS Y SKIN PROBLEMS Y URINARY/BLADDER/KIDNEY PROBLEMS Y DEPRESSION (INCLUDING POST ) Y BACK / NECK PROBLEMS Y SLEEP DISORDER Y Gynecological History Statement/Question Response Menses Monthly Y Date of Last Pap 02/19/2019 Abnormal Pap N Date of Last Pap Smear 05/08/2018 Current Control Method None Date of LMP 06/10/2021 Sexually Active? Y Obstetrics History GPAL:G 1 P 0 0 0 1 Type Value Living 1 Total 1 Immunizations Vaccine Type Date Status Note Provider Nam e and Address Organization Details Recorded Time COVID-19, mRNA, LNP-S, PF, 100 mcg/0.5mL dose or 50 mcg/0.25mL dose 09/19/2020 completed Not Available [facility] 3 07:36:08 COVID-19, mRNA, LNP-S, PF, 100 mcg/0.5mL dose or 50 mcg/0.25mL dose 09/04/2020 completed Not Available [facility] 3 07:36:08 Past Encounters Encounter ID Performer Location Encounter Start Date Encounter Closed Date Diagnosis/Indication Diagnosis SNOMED-CT Code Diagnosis ICD10 Code Diagnosis Note [id number] [facility] [address] [facility] [facility] [place] [address] 06/05/2021 00:00:00 06/20/2021 16:41:07 [id number] _LIV_Tho IGRATION_ DEFAULT_1 _1 , 06/26/2021 00:00:00 06/26/2021 17:21:54 [id number] [facility] [address] [facility] [place] [address] 07/25/2021 00:00:00 08/21/2021 21:17:05 [id number] [facility] [address] [facility] [address], [address] [place] [address] [place] [address] 08/04/2021 00:00:00 08/07/2021 13:30:26 [id number] [facility] [address] [facility] [address] [facility] [place] [address] 08/14/2021 00:00:00 08/20/2021 21:59:09 [id number] [facility] [place] [address] [place] [address] 09/01/2021 00:00:00 09/01/2021 19:10:39 [id number] TOBIN Martinez [facility] [address] [place] [address] 03/18/2023 15:46:45 03/18/2023 16:25:17 Adult health examination 923192626 Z00.00 well exam completed. annual fasting labs are ordered Cholesterol screening 27 5381499 Z13.220 fasting lipids due Insulin resistance 95871 5000 E88.81 fasting insulin due Impaired g lucose tolerance 8560101 R73.03 a1c due Butterfly rash 72943816 R21 repeat YAMILEX panel multiplex Weight gain 6658357 R63. 5 screening TFTs due Multiple joint pain 3567 8005 M25.50 screening ESR, CRP and RF Fatigue 19608070 R53.83 screening iron panel and b12, folate Vitamin D deficiency 347 83063 E55.9 vit D lab due Body mass index 30+ - obesity 666711986 Z68.35 Rx for phentermin e 37.5mg daily. Health Concerns Section Related Observation LastModified by Organization Detai ls LastModified Time None Recorded Concern Status LastModified by Organization Details LastModified Time None Recorded Advance Directives Directive None Recorded Payers Encounter Date Sequence Insurance Name Policy Number Policy Franco Covered Member ID Franco Member ID Guarantor Name 03/18/2023 1 [facility] [id number] Adela Kumar [id number] Adela Kumar Notes Date Note Type Note Provider Name and Address Organization Details Recorded Time 07/25/2021 text/html Generic HPI TemplateReported bypatient.Notes:Pt is f/u w/ labs. They are in review to you. Not Available ID - [facility] [employer] [facility] 08/21/2021 21:17:05 08/14/2021 text/html VomitingReported bypatient.Quality:not changing Duration:days; 1 weeks Onset/Timing:acute; intermittent Context:no one else with similar symptoms; no possible food sources; no recent travel; no well water; non-smoker; no drug/alcohol abuse; no drug alcohol withdrawal Alleviating Factors:nothing gives relief Aggravating Factors:nothing makes it worse Associated Symptoms:fever(99 range)Notes:Pt states first time it was after dinner. Then it happened at 2 am once. Also happened again while in the shower. Says it happens out of the blue.WheezingReported bypatient.Quality:tig htness;can't get a deep breath Severity:mild Duration:1 weeks; constant Onset/Timing:at night; wakes from sleep Context:when lying down; after respiratory illness (COVID-19 pos 07/16/21) Alleviating factors:nothing helps (been trying zyrtec) Aggravating factors:nothing makes it worse Associated Symptoms:no chest pain; no palpitations; no orthopnea; no PND; no chills; no sputum production; no hemoptysis; no dyspepsia; no allergies;fever Not Available [facility] 08/20/2021 21:59:09 03/18/2023 text/html Generic HPI TemplateReported bypatient.Notes:Pt is here for wellness. No chronic meds. she continues to have the flare ups of facial/cheek rash that is red and she has episodes weekly of feeling feverish with no registered fever when she checks. She still have fatigue that is intense and joint pains. Weight continues to climb. Strong fam hx of autoimmune problems but she saw Rheumatology a few years ago and they did not feel autoimmune was an issue. wellness TOBIN Martinez [address] [facility], [facility] [address], [place], [address], [employer] 03/19/2023 14:20:27 OBGyn Episode No OBEpisode recorded.
== END 2024-08-26 12:56 | disposition home or self-care (01) ==
PROVIDERS: Emergency Provider Nurse Practitioner Family; PCP Physician Assistant
DX: J06.9 Acute upper respiratory infection, unspecified (principal); Z20.822 Contact with and (suspected) exposure to COVID-19
CPT/HCPCS: 87081; 87426; 87804; 87880; 99213; G0463